=== PATIENT | female | born 1990 | race Caucasian/White ===

== ENCOUNTER 2017-10-29 16:55 | Emergency (ER) | payer OTHER ==
--- NOTE | 2017-10-29 17:03 | PDOC ---
Rapid Medical Evaluation Time Seen by Provider: 10/29/17 17:02 Medical Evaluation: Allergies Allergy/AdvReac Type Severity Reaction Status Date / Time No Known Allergies Allergy Verified 10/29/17 17:01 10/29/17 17:02 27 year old female with history of thyroductal cyst removal presenting with headaches, abdominal pain, sensation of abdominal distension, diarrhea, urinary frequency, and near syncope today. Also complaining of right wrist pain, worsening. Labs unremarkable EKG Basic labs UA/urine culture/ Right wrist xray To Main ED for further evaluation
[2017-10-29 17:05] VITALS: BMI 22.1
[2017-10-29 17:21] LABS: HCG,QUALITATIVE URINE NEGATIVE
[2017-10-29 17:25] LABS: URINE APPEARANCE CLEAR; URINE BILIRUBIN NEGATIVE (NEGATIVE); URINE BLOOD NEGATIVE (NEGATIVE); URINE COLOR COLORLESS; URINE GLUCOSE (UA) NEGATIVE (NEGATIVE); URINE KETONE NEGATIVE (NEGATIVE); URINE LEUK ESTERASE NEGATIVE (NEGATIVE); URINE NITRITE NEGATIVE (NEGATIVE); URINE PROTEIN NEGATIVE (NEGATIVE); URINE UROBILINOGEN NEGATIVE mg/dL (0.2-1.0)
[2017-10-29 17:29] LABS: BASO % 0.6 % (0-2.0); EOS % 0.9 % (0-4.5); HEMATOCRIT 40.5 % (32.4-45.2); HEMOGLOBIN 13.6 GM/dL (10.7-15.3); LYMPH % 45.6 % (8-40); MCH 31.6 pg (25.7-33.7); MCHC 33.5 g/dl (32.0-36.0); MEAN CELL VOLUME 94.3 fl (80-96); MEAN PLT VOLUME 8.9 fl (7.5-11.1); MONO % 8.9 % (3.8-10.2); PLATELET COUNT 272 K/MM3 (134-434); RDW 13.5 % (11.6-15.6); WHITE BLOOD COUNT 6.4 K/mm3 (4.0-10.0)
[2017-10-29 17:56] LABS: ALBUMIN 4.2 g/dl (3.4-5.0); ALK PHOS 87 U/L (45-117); ANION GAP 5 (8-16); BILIRUBIN,TOTAL 0.4 mg/dL (0.2-1.0); BLOOD UREA NITROGEN 11 mg/dL (7-18); CALCIUM 9.1 mg/dL (8.5-10.1); CHLORIDE 106 mmol/L (98-107); CO2 28 mmol/L (21-32); CREATININE 0.6 mg/dL (0.55-1.02); GLUCOSE,RANDOM 79 mg/dL (74-106); LIPASE 146 U/L (73-393); POTASSIUM 3.9 mmol/L (3.5-5.1); SGOT/AST 13 U/L (15-37); SGPT/ALT 23 U/L (12-78); SODIUM 139 mmol/L (136-145); TOT PROT 7.9 g/dl (6.4-8.2)
[2017-10-29] MEDS ORDERED: ONDANSETRON 4 MG TABLET PO ONE (20:17)
[2017-10-29] MEDS ORDERED: ACETAMINOPHEN 325 MG TABLET (FP) PO ONE (20:17)
--- NOTE | 2017-10-29 20:23 | PDOC ---
*Physical Exam - Vital Signs Last Vital Signs Temp Pulse Resp BP Pulse Ox 98.8 F 74 18 119/62 100 10/29/17 17:03 10/29/17 17:03 10/29/17 17:03 10/29/17 17:03 10/29/17 17:03 <Lisandro Alegria - Last Filed: 10/29/17 20:17> - Vital Signs Last Vital Signs Temp Pulse Resp BP Pulse Ox 98.6 F 72 18 119/60 100 10/29/17 20:33 10/29/17 20:33 10/29/17 20:33 10/29/17 20:33 10/29/17 20:33 - Physical Exam Comments: 10/29/17 20:57 GENERAL: Awake, alert, and fully oriented, in no acute distress HEAD: No signs of trauma EYES: PERRLA, EOMI, sclera anicteric, conjunctiva clear ENT: Auricles normal inspection, hearing grossly normal, nares patent, oropharynx clear without exudates. Moist mucosa NECK: Normal ROM, supple, no lymphadenopathy, JVD, or masses LUNGS: Breath sounds equal, clear to auscultation bilaterally. No wheezes, and no crackles HEART: Regular rate and rhythm, normal S1 and S2, no murmurs, rubs or gallops ABDOMEN: Soft, nontender, normoactive bowel sounds. No guarding, no rebound. No masses EXTREMITIES: Normal range of motion, no edema. No clubbing or cyanosis. No cords, erythema, or tenderness NEUROLOGICAL: Cranial nerves II through XII grossly intact. Normal speech, normal gait SKIN: Warm, Dry, normal turgor, no rashes or lesions noted. <Jose Greenberg - Last Filed: 10/29/17 20:57> ED Treatment Course - LABORATORY CBC & Chemistry Diagram: 10/29/17 17:16 10/29/17 17:16 - ADDITIONAL ORDERS Additional order review: Laboratory Results 10/29/17 10/29/17 17:16 17:16 Sodium 139 Potassium 3.9 Chloride 106 Carbon Dioxide 28 Anion Gap 5 L BUN 11 Creatinine 0.6 Creat Clearance w eGFR > 60 Random Glucose 79 Calcium 9.1 Total Bilirubin 0.4 AST 13 L ALT 23 Alkaline Phosphatase 87 Total Protein 7.9 Albumin 4.2 Lipase 146 Urine Color Colorless Urine Appearance Clear Urine pH 6.0 Ur Specific [place] 1.002 Urine Protein Negative Urine Glucose (UA) Negative Urine Ketones Negative Urine Blood Negative Urine Nitrite Negative Urine Bilirubin Negative Urine Urobilinogen Negative Ur Leukocyte Esterase Negative Urine HCG, Qual Negative 10/29/17 17:16 RBC 4.30 MCV 94.3 MCHC 33.5 RDW 13.5 MPV 8.9 Neutrophils % 44.0 Lymphocytes % 45.6 H Monocytes % 8.9 Eosinophils % 0.9 Basophils % 0.6 <Lisandro Alegria - Last Filed: 10/29/17 20:17> - LABORATORY CBC & Chemistry Diagram: 10/29/17 17:16 10/29/17 17:16 - ADDITIONAL ORDERS Additional order review: Laboratory Results 10/29/17 10/29/17 17:16 17:16 Sodium 139 Potassium 3.9 Chloride 106 Carbon Dioxide 28 Anion Gap 5 L BUN 11 Creatinine 0.6 Creat Clearance w eGFR > 60 Random Glucose 79 Calcium 9.1 Total Bilirubin 0.4 AST 13 L ALT 23 Alkaline Phosphatase 87 Total Protein 7.9 Albumin 4.2 Lipase 146 Urine Color Colorless Urine Appearance Clear Urine pH 6.0 Ur Specific [place] 1.002 Urine Protein Negative Urine Glucose (UA) Negative Urine Ketones Negative Urine Blood Negative Urine Nitrite Negative Urine Bilirubin Negative Urine Urobilinogen Negative Ur Leukocyte Esterase Negative Urine HCG, Qual Negative 10/29/17 17:16 RBC 4.30 MCV 94.3 MCHC 33.5 RDW 13.5 MPV 8.9 Neutrophils % 44.0 Lymphocytes % 45.6 H Monocytes % 8.9 Eosinophils % 0.9 Basophils % 0.6 - Medications Given in the ED: ED Medications Discontinued Medications Generic Name Dose Route Start Last Admin Trade Name Arpita PRN Reason Stop Dose Admin Acetaminophen 650 mg 10/29/17 20:17 10/29/17 20:27 Tylenol - PO 10/29/17 20:18 650 mg ONCE ONE Administration Ondansetron HCl 4 mg 10/29/17 20:17 10/29/17 20:27 Zofran - PO 10/29/17 20:18 4 mg ONCE ONE Administration <Jose Greenberg - Last Filed: 10/29/17 20:57> Medical Decision Making - Medical Decision Making 10/29/17 20:20 A portion of this note was documented by scribe services under my direction. I have reviewed the details of the note, within reason, and agree with the documentation with the following case summary and management plan written by me. Patient treated in the ED. Nursing notes are reviewed and incorporated into the medical decision-making. Vital signs reviewed. Peripheral IV access obtained by the nurse, laboratory studies are drawn and sent, reviewed and interpreted by myself. 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 The patient reported that she took a Plan B approximate one week ago and noted to have some intermittent nausea and abdominal cramping. Patient was out eating last night but does not remember what she ate. Today, she started developing numerous loose stools and intermittent abdominal cramping and nausea. No fevers or chills. No dysuria. Patient started feel lightheaded and tension-like headache. Denies neck stiffness. Came into the ED for further evaluation. Labs reviewed. Urinalysis and urine test review. I suspect the patient likely has viral gastritis. We'll give her supportive care and follow with primary care physician. Patient feels reassured. Patient is also requesting a referral to a hand surgeon for her right ganglionic cyst. We'll give her one. I discussed the physical exam findings, ancillary test results and final diagnoses with the patient. I answered all of the patient's questions. The patient was satisfied with the care received and felt comfortable with the discharge plan and treatment plan. The patient will call their primary care physician within 24 hours to arrange follow-up and will return to the Emergency Department with any new, persistant or worsening symptoms. <Lisandro Alegria - Last Filed: 10/29/17 20:17> *DC/Admit/Observation/Transfer - Discharge Dispostion Admit: No <Lisandro Alegria - Last Filed: 10/29/17 20:17> - Attestations Scribe Attestion: 10/29/17 20:57 Documentation prepared by Jose Greenberg, acting as certified medical technician for Lisandro Alegria MD. <Jose Greenberg - Last Filed: 10/29/17 20:57> Diagnosis at time of Disposition: Viral gastroenteritis - Discharge Dispostion Disposition: HOME Condition at time of disposition: Stable - Prescriptions Prescriptions: Acetaminophen [Tylenol] 650 mg PO Q4H PRN #20 tablet PRN Reason: Pain/Fever Mag Hydrox/Al Hydrox/Simeth [Mylanta Suspension -] 30 ml PO Q6H PRN #1 bottle PRN Reason: Abdominal Pain Ondansetron HCl [Zofran] 4 mg PO Q8H PRN #12 tablet PRN Reason: Nausea - Referrals Referrals: Donavon Washington MD [Staff Physician] - Sebastian Stein MD [Staff Physician] - - Patient Instructions Printed Discharge Instructions: DI for Viral Gastroenteritis -- Adult Additional Instructions: Drink plenty of fluids and rest. It may take several days before your symptoms improve. Please make an appointment with your doctors.
[2017-10-29] MEDS ORDERED: ONDANSETRON *ODT* 4 MG TABLET ONE (20:25)
[2017-10-29] MEDS ORDERED: ACETAMINOPHEN 325 MG TABLET (FP) ONE (20:25)
[2017-10-29 20:35] VITALS: BP 119/60; PULSE 72; TEMP 98.6
== END 2017-10-29 20:35 | disposition home or self-care (01) ==
LOC: JER 16:55
DX: A08.4 Viral intestinal infection, unspecified (principal); B97.89 Other viral agents as the cause of diseases classified elsewhere
CPT/HCPCS: 36415; 80053; 81003; 83690; 84703; 85025; 87086; 99283-25